=== PATIENT | male | born 1990 | race Hispanic/Latino ===

== ENCOUNTER 2025-04-11 12:54 | Emergency (ER) | payer BC ==
[~2025-04-11] VITALS: Ht 167.6 cm; Wt 108.9 kg
[2025-04-11 12:55] VITALS: BP 130/94; PULSE 84; RESP 16; TEMP 97.9
--- NOTE | 2025-04-11 13:13 | ERN ---
ED Note History of Present Illness Stated Complaint: TOOTHACHE Chief Complaint: Tooth Ache/Pain Time Seen by MD: 13:00 Dictation: PATIENT IS HERE WITH DENTAL PAIN AND CARIES TO TOOTH NUMBER TWO AND 16. HE SAID HE HAS HAD THE PAIN FOR SEVERAL WEEKS, HAS GOTTEN WORSE OVER THE LAST COUPLE OF DAYS IN HIS ALREADY BEEN TO BE SEEN AT [facility]. HE STATES THEY WANTED TO DO SOME DENTAL WORK HOWEVER HE RAN OUT OF FUNDS AND JUST A SEEKING ANTIBIOTICS AND PAIN MANAGEMENT TODAY. NO FEVER NO CHILLS NO NAUSEA VOMITING Allergies: Coded Allergies: No Known Allergies (Unverified Allergy, Unknown, 04/11/25) Past Medical History Past Medical History: Hypertension, Other Additional Past Medical Hx: GOUT Surgical History: Other Surgical History Other: YAMINI RN Note Reviewed/Agreed w/PFSH: Yes Review of System Dictation CONSTITUTIONAL: NEGATIVE EXCEPT FOR HPI HEAD/FACE: NEGATIVE EXCEPT FOR HPI EENT: NEGATIVE EXCEPT FOR HPI DENTAL PAIN RESPIRATORY: NEGATIVE EXCEPT FOR HPI GASTROINTESTINAL/ABDOMINAL: NEGATIVE EXCEPT FOR HPI GENITOURINARY: NEGATIVE EXCEPT FOR HPI MUSCULOSKELETAL: NEGATIVE EXCEPT FOR HPI INTEGUMENTARY: NEGATIVE EXCEPT FOR HPI NEUROLOGICAL/PSYCH: NEGATIVE EXCEPT FOR HPI HEMATOLOGIC/LYMPHATIC: NEGATIVE EXCEPT FOR HPI ALL SYSTEMS NEGATIVE, EXCEPT NOTED ABOVE. 13 POINT REVIEW OF SYSTEMS ASSESSED AND ALL NEGATIVE EXCEPT FOR ABOVE. Initial Vital Sign VS Vital Signs Date Time Temp Pulse Resp B/P (MAP) Pulse Ox O2 Delivery O2 Flow Rate FiO2 04/11/25 12:55 97.9 84 16 130/94 99 Room Air 0 Physical Exam Dictation VITAL SIGNS REVIEWED GENERAL APPEARANCE: ALERT, ORIENTED X 3, MODERATE ACUTE DISTRESS, WELL DEVELOPED, NOURISHED. HEAD AND FACE: NON-TRAUMATIC. EYES: PERRL, PINK CONJUNCTIVAS, EYELID NO TRAUMA, ANTERIOR CHAMBER WITH ARCUS SENILIS. EARS: PINNAS INTACT AND NO SIGNS OF TRAUMA OR ERYTHEMA EAR CANALS CLEAR AND NO DISCHARGE TM NO ERYTHEMA NOSE: NO DISCHARGE, NO BLEEDING. OROPHARYNX: MOUTH NORMAL, TONGUE PINK, DENTAL CARIES WITH GINGIVAL ERYTHEMA TOOTH 2., 16. PHARYNX CLEAR,NO ERYTHEMA, TONSILS NO EXUDATES, NO ABSCESSES NOTED, MUCOUS MEMBRANE MOIST NECK: SUPPLE, NON-TENDER, NO THYROMEGALY, NO MASSES, NO JVD, NO BRUITS BREAST:DEFERRED CHEST:NO TENDERNESS, NO CREPITUS, NO PARADOXICAL MOVEMENT, NO RETRACTIONS LUNGS:CLEAR, WELL-VENTILATED, SYMMETRIC, NO RALES, NO WHEEZING, NO RHONCHI, NO STRIDOR, GOOD BREATH SOUNDS BILATERALLY HEART: REGULAR RATE, REGULAR RHYTHM, NO MURMUR, NO GALLOPS VASCULAR: NO PERIPHERAL EDEMA, ABDOMEN: SOFT, POSITIVE BOWEL SOUNDS, NONDISTENDED, NO GUARDING, NONTENDER, NO REBOUND, NO MASSES NO HEPATOMEGALY, NO SPLENOMEGALY, NO RAMOS'S SIGN, NO HERNIAS. RECTAL: DEFERRED GENITAL: DEFERRED NEUROLOGICAL: NORMAL SPEECH, MOTOR FUNCTION INTACT, SENSORY FUNCTION INTACT MUSCULOSKELETAL: NECK NONTENDER, FULL RANGE OF MOTION, BACK NONTENDER, FULL RANGE OF MOTION, EXTREMITIES: NONTENDER, FULL RANGE OF MOTION SKIN: COLOR PINK, DRY, NO TURGOR, NO RASH, NO LACERATIONS, NO ABRASIONS, NO CONTUSIONS. LYMPHATIC: DEFERRED Results (Laboratory/Radiology) Labs Reviewed?: Yes ED Course ED Course Orders Procedure Category Date Status Time Ibuprofen 800 Mg Tab PHA 04/11/25 In Process (Motrin) 13:30 Current Medications Medications (Trade) Dose Ordered Sig/Hank Route PRN Reason Start Time Stop Time Status Last Admin Dose Admin Ibuprofen (moTRIN) 800 mg ONCE ONCE PO 04/11/25 13:30 04/11/25 13:31 Vital Signs Date Time Temp Pulse Resp B/P (MAP) Pulse Ox O2 Delivery O2 Flow Rate FiO2 04/11/25 12:55 97.9 84 16 130/94 99 Room Air 0 1318/PATIENT WILL BE GIVEN IBUPROFEN FOR PAIN. IN ADDITION HE WILL BE PROVIDED CLINDAMYCIN FOR DENTAL CARIES AND INFECTION HE WAS MADE AWARE THERE NO DENTIST AVAILABLE TO THE EMERGENCY ROOM TO FOLLOW BACK UP WITH [facility] FOR FOLLOW UP AND MANAGEMENT Medical Decision Making MDM MEDICAL DECISION-MAKING BASED ON BASIC EXAMINATION AND EMPIRIC TREATMENT FOR PAIN PATIENT HAS DENTAL CARIES INTO THE PULP WE WILL BE PROVIDED IBUPROFEN AND CLINDAMYCIN TOLD FOLLOW BACK UP WITH HIS DENTIST, [facility] IN THE NEXT 1-2 DAYS. DX & DISP Disposition: Discharge Departure Impression: Primary Impression: Dental caries extending into pulp Additional Impression: Dentalgia Condition: Stable Scripts Ibuprofen (Ibuprofen 800 mg Tab) 800 Mg Tab 800 MG PO Q8H PRN for fever or pain, #30 TAB 0 Refills Prov: BREANN DUFF PRODUCT MANAGER [employer] 04/11/25 Clindamycin HCl (Clindamycin HCl) 300 Mg Capsule 1 CAP PO QID for 10 Days, #40 CAP 0 Refills Prov: BREANN DUFF NP 04/11/25 Additional Instructions: FOLLOW-UP WITH PRIMARY CARE PROVIDER IN 1 TO 2 DAYS. TAKE MEDICATIONS DIRECTED HERE IN THE EMERGENCY ROOM. OKAY TO CONTINUE HOME MEDICATIONS UNLESS OTHERWISE DISCUSSED DURING YOUR VISIT IN THE EMERGENCY ROOM TODAY. RETURN TO YOUR NEAREST EMERGENCY ROOM IF SYMPTOMS WORSEN OR IF THERE IS NO IMPROVEMENT. CALL 911 IF YOU NEED IMMEDIATE ASSISTANCE. TAKE TYLENOL OR MOTRIN [id number] NEEDED AND IF NO CONTRAINDICATIONS ARE PRESENT. INCREASE ORAL HYDRATION. A WOUND CULTURE OR URINE CULTURE WAS ORDERED HERE IN THE EMERGENCY ROOM DEPARTMENT PLEASE FOLLOW-UP WITH PRIMARY CARE PROVIDER AND ADVISE THEM TO GET REPEAT PORTS FROM OUR FACILITY. IF YOU HAD ANY MIRIAN WRAP/SPLINTS THAT WERE APPLIED HERE, PLEASE DO NOT REMOVE THEM UNTIL YOU SEE YOUR PRIMARY CARE OR SPECIALTY. TAKE ANTIBIOTICS DIRECTED UNTIL GONE. START ANTIBIOTIC WITH TWO CAPSULES THE 1ST DOSE, THEN TAKE ONE CAPSULE DIRECTED EVERY 6 HOURS UNTIL GONE. TAKE IBUPROFEN EVERY 6-8 HOURS WITH FOOD FOR THE NEXT TWO DAYS. SEE YOUR DENTIST AT [facility] FOR MANAGEMENT Referrals: SELF,REFERRAL (PCP) Time of Disposition: 13:20 I have reviewed the case, and I agree with, Diagnosis and Plan BREANN DUFF NP Apr 11, 2025 13:13
[2025-04-11] MEDS ORDERED: CLIN-141 PO (13:21)
[2025-04-11] MEDS ORDERED: IBUP-2077 PO (13:21)
--- NOTE | 2025-04-11 13:38 | NUR ---
PT BROUGHT IN AT THIS TIME TO INTERNAL WAITING AREA FOR ASSESSMENT AND DC INSTRUCTIONS.
== END 2025-04-11 13:52 | disposition home or self-care (01) ==
LOC: EDH 12:54
DX: K02.9 Dental caries, unspecified (principal); I10 Essential (primary) hypertension
CPT/HCPCS: 99283